=== PATIENT | male | born 1970 | race Caucasian/White ===

== ENCOUNTER 2024-02-06 19:15 | Emergency (ER) | payer OTHER, SELFPAY ==
[2024-02-06 19:16] VITALS: BMI 36.4
[2024-02-06 19:30] VITALS: BP 179/110
[2024-02-06 19:42] LABS: Urine Albumin Trace (Neg - Trace); Urine Bilirubin 1+ (Negative); Urine Character Clear (Clear); Urine Color Yellow; Urine Glucose Negative (Negative); Urine Ketone Negative (Negative); Urine Leukocyte Trace (Negative); Urine Nitrite Negative (Negative); Urine Occult Blood 4+ (Negative); Urine Urobilinogen Negative (Neg - 1+)
[2024-02-06 19:46] LABS: % Basophils 0.3 % (0-2); % Eosinophils 0.8 % (0-6); % Immature Granulocytes 0.3 % (0-0.5); % Lymphocytes 22.4 % (20.5-51.1); % Monocytes 5.3 % (1.7-9.3); % Neutrophils 70.9 % (42.2-75.2); Absolute Eosinophils 0.1 10^3/uL (0-0.7); Absolute Lymphocytes 2.6 10^3/uL (1.2-3.4); Absolute Monocytes 0.6 10^3/uL (0.1-0.6); Absolute Neutrophils 8.2 10^3/uL (1.4-6.5); Hemoglobin 15.4 g/dL (13.0-18.0); Mean Corpuscular Hgb 30.9 pg (27.0-31.0); Mean Corpuscular Volume 88.2 fL (80.0-94.0); Mean Platelet Volume 9.8 fL (7.4-10.4); Nucleated Red Blood Cells % 0 % (-); Platelet Count 357 10^3/uL (130-400); Red Blood Cell Count 4.99 10^6/uL (4.70-6.10); Red Cell Dist. Width 12.3 % (11.5-14.5); White Blood Cell Count 11.6 10^3/uL (4.8-10.8)
[2024-02-06 20:00] VITALS: BP 169/88
[2024-02-06 20:01] LABS: ALT (SGPT) 73 U/L (0-50); AST (SGOT) 52 U/L (17-59); Albumin 4.8 g/dl (3.5-5.0); Alkaline Phosphatase 128 U/L (38-126); Blood Urea Nitrogen 18 mg/dl (9-20); Calcium 9.6 mg/dl (8.4-10.2); Carbon Dioxide 24 mmol/L (22-30); Chloride 102 mmol/L (98-107); Glucose 194 mg/dl (70-99); Lipase 91 U/L (23-300); Potassium 4.3 mmol/L (3.5-5.1); Sodium 140 mmol/L (135-145); Total Bilirubin 0.8 mg/dl (0.2-1.3); Total Protein 7.5 g/dl (6.3-8.2); eGFR > 60.00
[2024-02-06 20:25] LABS: Urine Mucus Few; Urine Squamous Cell 0-2 /LPF (Few)
[2024-02-06 20:26] LABS: Urine Bacteria Many (Negative); Urine Red Blood Cell 26-30 /HPF (0-2); Urine Uric Acid Crystals Present
[2024-02-06] MEDS: NSS 1000 IV (20:49)
[2024-02-06] MEDS: TORADOL 15 MG IV (20:49)
[2024-02-06 21:16] VITALS: BP 169/88
[2024-02-06 22:00] VITALS: BP 167/90
--- NOTE | 2024-02-06 22:23 | ED.GENMED ---
History of Present Illness
General
Chief Complaint: Flank Pain
Source: patient
Exam Limitations: none
Time Seen by Provider: 02/06/24 20:26
History of Present Illness
History of Present Illness:
53-year-old male presents left flank pain is been ongoing for last 4 to 5 days. Patient states pain has been waxing waning. Today pain persistent was a little bit worse. He states it also hurts a little bit to urinate. He denies fevers. Denies
vomiting. States he has low blood pressure when he urinates and also feels a little bit of burning.
Past History
Past History
ED Past Medical History: HTN and Other (Anxiety)
Phy Exam
Physical Exam
Physical Exam:
CONSTITUTIONAL Patient alert and oriented to person, place and time. Well-appearing. Vital signs reviewed.
HEAD atraumatic, normocephalic.
EYES eyelids normal to inspection, Extraocular muscles intact, Conjunctiva normal, Sclera normal.
NECK normal range of motion, Trachea midline, no jugular venous distention.
RESPIRATORY CHEST No respiratory distress noted, Chest expansion equal, Bilateral breath sounds clear.
CARDIOVASCULAR regular rate and rhythm, Heart sounds normal.
ABDOMEN abdomen nontender, Bowel sounds normal. No distention.
BACK normal inspection, no obvious deformities, no CVA tenderness
UPPER EXTREMITY range of motion normal, Motor strength normal, no cyanosis, no edema.
LOWER EXTREMITY range of motion normal, Motor strength normal, no cyanosis, no edema.
NEURO Speech normal, No focal motor deficits, Polo coma scale 15, Memory normal, Cranial Nerves intact to screening exam.
SKIN skin warm, dry, and normal in color.
PSYCHIATRIC patient oriented to person place and time, Normal affect.
Course
Orders/Labs/Results
Orders:
Orders
02/06/24 19:37
Urinalysis Reflex To Culture Urgent
Date Specimen was Collected: 02/06/24
Time Specimen was Collected: 19:33
Urine Microscopic Reflex Cult Urgent
Urine Culture Urgent
NICKI Source: U
Specimen Description:
Date Specimen was Collected: 02/06/24
Time Specimen was Collected: 19:33
02/06/24 19:38
Complete Blood Count/With Diff Urgent
Comprehensive Metabolic Panel Urgent
Lipase Urgent
02/06/24 20:39
CT Abd/pel Without Iv Or Oral Urgent
Comment:
Reason For Exam: L flank pain
0.9% Sodium Chloride 1000 ml [Nss] 1,000 ml IV BOLUS
Ketorolac [Toradol] 15 mg IV NOW STA
Abnormal Lab Results
02/06/24 02/06/24
19:37 19:38
WBC 11.6 H 10^3/uL
(4.8-10.8)
Absolute Neuts (auto) 8.2 H 10^3/uL
(1.4-6.5)
Glucose 194 H mg/dl
(70-99)
ALT 73 H U/L
(0-50)
Alkaline Phosphatase 128 H U/L
(38-126)
Ur Occult Blood Reflex 4+ A
(Negative)
Urine Bilirubin 1+ A
(Negative)
Leukocyte Esterase Rfl Trace A
(Negative)
Urine RBC 26-30 A /HPF
(0-2)
Urine Bacteria (Reflex) Many A
(Negative)
02/06/24 19:38
02/06/24 19:38
Vital Signs
Initial and Last Documented VS:
Initial Vital Signs
Temp Pulse Resp BP Pulse Ox
99.2 F 101 20 179/110 98
02/06/24 19:30 02/06/24 19:30 02/06/24 19:30 02/06/24 19:30 02/06/24 19:30
Last Documented Vital Signs
Temp Pulse Resp BP Pulse Ox
98.1 F 96 16 169/88 99
02/06/24 20:00 02/06/24 20:00 02/06/24 20:00 02/06/24 21:16 02/06/24 20:00
MDM/Problems Addressed
MDM/Problems Addressed:
Nephrolithiasis
*Pulse Oximetry
Patient hypoxic: no
*Critical Care Note
Total Time (30-74mins, 75-104mins- exclusive of procedures): Not Applicable
Data Reviewed
Source: patient and family
Prescriptions/Medications Considered But Not Given:
Considered antibiotics but no leuks in urine
Patient Management
Escalation/DeEscalation of care consider admission/obs:
Reassessment patient states he is pain-free. Did urinate after CT and it is possibly passed it or just had significant relief from Toradol. Okay for discharge. Flomax is outpatient and okay for discharge
ED Attending Note
-
Portions of this chart may have been created with voice recognition software.� Occasional wrong word or��sound alike� substitutions may have occurred due to the inherent limitations of voice recognition software.
Discharge Plan
Departure
Patient Disposition: Home (Routine Discharge)
Date of Disposition: 02/06/24
Time of Disposition: 22:28
Patient with high blood pressure during this ER visit?: Yes
Discharge Problem:
Kidney stone
Instructions: Kidney Stones (DC), BLOOD PRESSURE
Prescriptions:
No Action
lisinopril 10 mg Tablet
10 mg PO DAILY
escitalopram oxalate [Lexapro] 10 mg Tablet
10 mg PO DAILY
Referrals:
Adriana Nugent PA [Family Provider] -
Pee Silva MD [Active] -
Activity Restrictions/Additional Instructions:
Return immediately for vomiting, fevers, worsening pain or any other concerns. Please see your doctor or urology in the next 3 to 5 days for follow-up and reevaluation.
Interventions
Interventions:
*Risk Screen - Suicide Last Done: 02/06/24 22:21
*Neglect/Abuse Screening Last Done: 02/06/24 22:21
ED- Fall Risk Assessment Last Done: 02/06/24 22:22
VF-Fuzrvq-Heneitrdvg Assessment Last Done: 02/06/24 20:43
ED-Male Genitourinary Assessment Last Done: 02/06/24 20:43
Discharge Date and Time
Print Language: KAZAKH
== END 2024-02-06 22:45 | disposition home or self-care (01) ==
LOC: EMR 19:15
PROVIDERS: Emergency Medicine; EMERGENCY PHYSICIAN Emergency Medicine; FAMILY PHYSICIAN Physician Assistant Medical
DX: N20.0 Calculus of kidney (principal); I10 Essential (primary) hypertension
CPT/HCPCS: 99284; 96374; 96361; 74176; 80053; 81003; 81015; 83690; 85025; 87086

== ENCOUNTER 2024-02-08 13:05 | Emergency (ER) | payer OTHER, SELFPAY ==
[2024-02-08 13:14] VITALS: BP 160/98
[2024-02-08 13:42] LABS: % Basophils 0.4 % (0-2); % Eosinophils 0.3 % (0-6); % Immature Granulocytes 0.6 % (0-0.5); % Lymphocytes 12.7 % (20.5-51.1); Absolute Immature Granulocytes 0.1 10^3/uL (0-0.05); Absolute Lymphocytes 1.4 10^3/uL (1.2-3.4); Absolute Monocytes 0.5 10^3/uL (0.1-0.6); Absolute Neutrophils 8.8 10^3/uL (1.4-6.5); Hematocrit 43.6 % (39.0-52.0); Hemoglobin 15.5 g/dL (13.0-18.0); Mean Corp Hgb Conc. 35.6 g/dL (33.0-37.0); Mean Corpuscular Hgb 30.3 pg (27.0-31.0); Mean Corpuscular Volume 85.2 fL (80.0-94.0); Mean Platelet Volume 10.2 fL (7.4-10.4); Nucleated Red Blood Cells % 0 % (-); Platelet Count 421 10^3/uL (130-400); Red Blood Cell Count 5.12 10^6/uL (4.70-6.10); Red Cell Dist. Width 12.2 % (11.5-14.5); White Blood Cell Count 10.9 10^3/uL (4.8-10.8)
[2024-02-08 13:52] LABS: Urine Albumin Negative (Neg - Trace); Urine Bilirubin Negative (Negative); Urine Character Clear (Clear); Urine Color Yellow; Urine Glucose 3+ (Negative); Urine Ketone Negative (Negative); Urine Leukocyte Negative (Negative); Urine Nitrite Negative (Negative); Urine Occult Blood Trace (Negative); Urine Urobilinogen Negative (Neg - 1+)
[2024-02-08 14:01] LABS: Urine Bacteria Few (Negative); Urine Red Blood Cell 0-2 /HPF (0-2); Urine White Cell 0-2 /HPF (0-5)
[2024-02-08 14:09] LABS: ALT (SGPT) 76 U/L (0-50); AST (SGOT) 51 U/L (17-59); Albumin 4.9 g/dl (3.5-5.0); Alkaline Phosphatase 139 U/L (38-126); Blood Urea Nitrogen 10 mg/dl (9-20); Calcium 10.1 mg/dl (8.4-10.2); Carbon Dioxide 24 mmol/L (22-30); Chloride 101 mmol/L (98-107); Glucose 264 mg/dl (70-99); Potassium 4.5 mmol/L (3.5-5.1); Sodium 140 mmol/L (135-145); Total Bilirubin 0.7 mg/dl (0.2-1.3); Total Protein 7.7 g/dl (6.3-8.2); eGFR > 60.00
[2024-02-08 14:41] LABS: Troponin I < 0.012 ng/ml
--- NOTE | 2024-02-08 14:55 | ED.GENMED ---
History of Present Illness
General
Chief Complaint: Weakness
Time Seen by Provider: 02/08/24 14:36
History of Present Illness
History of Present Illness:
53-year-old male presents to the emergency department for evaluation of generalized weakness and polyuria, weakness maximized last night he felt quite anxious which led him into a panic attack. He was recently here for a kidney stone which he
states is since passed. He was well 2 days ago yesterday developed generalized muscle weakness and overall fatigue. Admits that he does not routinely see a primary care physicians. No chest pain or dyspnea
Past History
Past History
ED Past Medical History: HTN and Other (Anxiety)
Review of Systems
Review of Systems
Allergies reviewed?: Yes
All Other Systems: ROS reviewed and negative except as documented in HPI and ROS
Phy Exam
Physical Exam
Physical Exam:
GEN: Well appearing, NAD, WDWN
HEENT: Oral mucosa moist, no scleral icterus
Cardiac: Regular rate
Lung: No respiratory distress, no tachypnea
MSK: No gross deformity or injuries
Skin: Good color, no pallor or jaundice, no rashes
Neuro: AO x3, moves all extremities freely
Psych: Calm, cooperative
Course
Orders/Labs/Results
Orders:
Orders
02/08/24
EKG [Electrocardiogram (*1)] Urgent
Reason for Study: Vertigo / Dizzy
02/08/24 13:20
CBC/With Diff [Complete Blood Count/With Diff] Urgent
Comprehensive Metabolic Panel Urgent
Troponin I Urgent
Urine Culture Reflexed from UA [Urinalysis Reflex To Culture] Urgent
Date Specimen was Collected: 02/08/24
Time Specimen was Collected: 13:17
Urine Microscopic Reflex Cult Urgent
02/08/24 15:07
Lactated Ringers [Lr] 1,000 ml IV BOLUS
Abnormal Lab Results
02/08/24
13:20
WBC 10.9 H 10^3/uL
(4.8-10.8)
Plt Count 421 H 10^3/uL
(130-400)
Abs Immat Gran (auto) 0.1 H 10^3/uL
(0-0.05)
Absolute Neuts (auto) 8.8 H 10^3/uL
(1.4-6.5)
Immature Gran % 0.6 H %
(0-0.5)
Neutrophils % 81.0 H %
(42.2-75.2)
Lymphocytes % 12.7 L %
(20.5-51.1)
Glucose 264 H mg/dl
(70-99)
ALT 76 H U/L
(0-50)
Alkaline Phosphatase 139 H U/L
(38-126)
Ur Occult Blood Reflex Trace A
(Negative)
Urine Bacteria (Reflex) Few A
(Negative)
Urine Glucose 3+ A
(Negative)
02/08/24 13:20
02/08/24 13:20
Vital Signs
Initial and Last Documented VS:
Initial Vital Signs
Temp Pulse Resp BP Pulse Ox
98.6 F 92 20 160/98 98
02/08/24 13:14 02/08/24 13:14 02/08/24 13:14 02/08/24 13:14 02/08/24 13:14
Last Documented Vital Signs
Temp Pulse Resp BP Pulse Ox
98.6 F 92 20 160/98 98
02/08/24 13:14 02/08/24 13:14 02/08/24 13:14 02/08/24 13:14 02/08/24 13:14
MDM/Problems Addressed
MDM/Problems Addressed:
Patient's labs are suspicious for new onset diabetes with elevated blood sugar and mild anion gap of 15. Glycosuria is also noted. He was given 1 L of lactated Ringer's and will start him on metformin. No clinical signs of DKA that would warrant
IV insulin.
*Critical Care Note
Total Time (30-74mins, 75-104mins- exclusive of procedures): Not Applicable
ED Attending Note
-
Portions of this chart may have been created with voice recognition software.� Occasional wrong word or��sound alike� substitutions may have occurred due to the inherent limitations of voice recognition software.
Discharge Plan
Departure
Patient Disposition: Home (Routine Discharge)
Date of Disposition: 02/08/24
Time of Disposition: 16:49
Patient with high blood pressure during this ER visit?: No
Discharge Problem:
Acute hyperglycemia
Instructions: Diabetes and diet, High Blood Sugar, Adult ED
Prescriptions:
New
metformin 500 mg tablet
500 mg PO BID Qty: 60 0RF
No Action
lisinopril 10 mg Tablet
10 mg PO DAILY
escitalopram oxalate [Lexapro] 10 mg Tablet
10 mg PO DAILY
Interventions
Interventions:
*Risk Screen - Suicide Last Done: 02/08/24 13:14
*General Assessment Last Done: 02/08/24 13:14
*Neglect/Abuse Screening Last Done: 02/08/24 13:14
ED- Fall Risk Assessment Last Done: 02/08/24 17:20
*Nursing Disposition Last Done: 02/08/24 17:20
ED- Cardiac Assessment Last Done: 02/08/24 15:18
ED- Neurological Assessment Last Done: 02/08/24 15:18
ED- Pulmonary Assessment Last Done: 02/08/24 15:18
Discharge Date and Time
Discharge Date/Time: 02/08/24 17:21
Print Language: GERMAN
[2024-02-08] MEDS: LR 1000 IV (15:14)
== END 2024-02-08 17:21 | disposition home or self-care (01) ==
LOC: EMR 13:05
PROVIDERS: Emergency Medicine; EMERGENCY PHYSICIAN Emergency Medicine; FAMILY PHYSICIAN Physician Assistant Medical
DX: R73.9 Hyperglycemia, unspecified (principal)
CPT/HCPCS: 99284; 96360; 80053; 81003; 81015; 84484; 85025; 93005